=== PATIENT | male | born 1980 | race Two or more races ===

== ENCOUNTER 2020-09-02 01:11 | Emergency (ER) | payer SELFPAY ==
[~2020-09-02] VITALS: Ht 180.3 cm; Wt 104.3 kg
[2020-09-02 01:28] VITALS: Ht 180.3 cm; Wt 104.3 kg
[2020-09-02 04:59] VITALS: BP 150/100
== END 2020-09-02 03:20 | disposition other institution (70) ==
LOC: ED 01:11
DX: S00.83XA Contusion of other part of head, initial encounter (principal); S20.352A Superficial foreign body of left front wall of thorax, initial encounter; S30.850A Superficial foreign body of lower back and pelvis, initial encounter; S70.352A Superficial foreign body, left thigh, initial encounter; Y04.0XXA Assault by unarmed brawl or fight, initial encounter; Y93.89 Activity, other specified; Y92.89 Other specified places as the place of occurrence of the external cause; Y99.8 Other external cause status

== ENCOUNTER 2020-09-02 01:11 | Emergency (ER) | payer OTHER | END 2020-09-02 03:20 | disposition other institution (70) | LOC: ED 01:11 | DX: Z02.89 Encounter for other administrative examinations (principal) ==